=== PATIENT | male | born 2000 | race African-American/Black ===

== ENCOUNTER 2023-09-27 19:19 | Emergency (ER) | payer SELFPAY ==
[~2023-09-27] VITALS: Ht 185.4 cm; Wt 59.1 kg
[2023-09-27 19:35] VITALS: BP 125/56; PULSE 58; RESP 18; TEMP 98.6
[2023-09-27] MEDS: IBUPROFEN 600 MG TABLET PO ONE (19:58)
[2023-09-27] MEDS ORDERED: ACET-2080 PO (21:24)
[2023-09-27] MEDS ORDERED: IBUP-1554 PO (21:24)
== END 2023-09-27 21:45 | disposition home or self-care (01) ==
LOC: EMS 19:19
DX: S63.602A Unspecified sprain of left thumb, initial encounter (principal); F12.90 Cannabis use, unspecified, uncomplicated; X58.XXXA Exposure to other specified factors, initial encounter; Y93.89 Activity, other specified; Y92.89 Other specified places as the place of occurrence of the external cause; Y99.8 Other external cause status
CPT/HCPCS: 99283